=== PATIENT | male | born 1970 | race Caucasian/White ===

== ENCOUNTER 2023-10-07 17:57 | Emergency (ER) | payer OTHER, SELFPAY ==
--- NOTE | 2023-10-07 18:04 | XR_ITS ---
PROCEDURE INFORMATION: Exam: XR Right Knee Exam date and time: 10/07/2023 6:21 PM Age: 53 years old Clinical indication: Pain; Knee; Right TECHNIQUE: Imaging protocol: Radiologic exam of the right knee. Views: 3 views. COMPARISON: No relevant prior studies available. FINDINGS: Bones/joints: Normal. Soft tissues: Normal. IMPRESSION: No acute findings.
[2023-10-07 18:15] VITALS: BP 133/78; PULSE 82; RESP 19; TEMP 36.6; O2SAT 100; BMI 30.8
--- NOTE | 2023-10-07 18:43 | EXP.UTC ---
Discharge Plan Disposition Patient Disposition: Home, Self-Care Condition: Good Referrals Follow up/Referrals: Rajeev Adorno DO [Staff Physician] - See instructions (Call office for appointment) Matt Chance [Primary Care Provider] - See instructions Activity Restrictions/Add. Instructions Additional Instructions/Restrictions: *no weight bearing *RICE, Rest the extremity, Ice 15-20 minutes 3-4 times daily, Compress- wear the leticia wrap as discussed as much as possible to help reduce swelling and pain, Elevate the extremity when at rest *Knee immolizer is for support and help control swelling Be sure that is not to tight but not to loose either Use crutches to get around *Elevate when resting? *Ibuprofen 600-800mg every 6-8 hours as needed for pain an inflammation. If need something more can take Tylenol in between doses of Ibuprofen to help Immediately follow up with your family doctor for new or worsening of symptoms, or no noticeable improvement over the next 3-5 days Clinical Impressions Clinical Impression: Knee pain Qualifiers: Chronicity: unspecified Laterality: right Qualified Code(s): M25.561 - Pain in right knee Stand Alone Forms Stand Alone Forms: Work/School Release Instructions Patient Instructions: How to Use Crutches, DI for Knee Pain, How to Use a Knee Immobilizer Discharge ED Provider: Tanisha Banks [facility] [place] HPI General Stated complaint: RT leg, knee pain Mode of Arrival: Ambulatory Source of Information: Patient Limitations: No Limitations Time Seen by Provider: 10/07/23 18:43 Description of Symptoms (Recalled from Triage Doc. by RN): PATIENT STATES HE WAS LOADING HIS TRUCK YESTERDAY AND FELT A SHARP PAIN BEHIND HIS RIGHT KNEE. PATIENT STATES HE CANNOT PUT PRESSURE ON THAT LEG HEENT Symptoms (Recalled from RN notes): No Resp Symptoms (Recalled from RN notes): No Skin Symptoms (Recalled from RN notes): No MS Symptoms (Recalled from RN notes): Yes Functional Status (Recalled from RN notes): WNL History of Present Illness Provider Complaint: Patient states that he was loading his truck at work yesterday and went to step out of the truck onto the railing and and felt a sharp pain behind his right knee States that after that it hurt to put weight on it and today he noticed he had a swollen area just above the knee Related Data Allergies Allergy/AdvReac Type Severity Reaction Status Date / Time hydrocodone Allergy Verified 10/07/23 18:29 oxycodone Allergy Verified 10/07/23 18:29 Worker's Comp Is this a Worker's Comp case?: No [facility] Disclaimer: The information contained in this section may have been updated after the patient was seen, as this information can be updated by other users. Social History Smoking Status: Unknown if ever smoked alcohol intake: never current occupational status: employed Travel in the last 8 weeks: None ROS Obtained: Yes All systems reviewed & no additional complaints except as documented and Yes Systems reviewed as appropriate & no additional complaints except as documented Cardiovascular Cardiovascular: Reports system reviewed and no additional complaints, except as documented and Reports as per HPI Respiratory Respiratory: Reports system reviewed and no additional complaints, except as documented and Reports as per HPI Gastrointestinal Gastrointestingal: Reports system reviewed and no additional complaints, except as documented and as per HPI Musculoskeletal Musculoskeletal: Reports system reviewed and no additional complaints, except as documented and Reports as per HPI Comments: Pain in right knee after stepping wrong yesterday and feeling a sharp pain Physical Exam General General appearance: alert and in no apparent distress Respiratory Respiratory exam: Present normal lung sounds bilaterally; Absent respiratory distress or wheezes Cardiovascular Cardiovascular exam: Present regular rate, normal rhythm and normal heart sounds Expanded Lower Extremity Exam Right: Leg image: 1. swollen area noted 2. reports pain and pain behind knee area also no bruising noted no discoloration or warmth Knee exam: Present tenderness and swelling Lower leg exam: Present normal inspection Ankle exam: Present normal inspection Neurovascular/Tendon exam: Present normal capillary refill; Absent pulse deficit Gait: not tested/not observed Neurological Exam Neurological exam: Present alert and oriented X3 Medical Decision Making Vinnie Inquiry Pt receiving controlled substance: No Vinnie was queried for this patient: No Vital Signs: 10/07/23 18:15 Temperature 97.8 F Temperature Source Oral Pulse Rate [Right Brachial] 82 Respiratory Rate 19 Blood Pressure [Right Arm] 133/78 Blood Pressure Mean [Right Arm] 96 Blood Pressure Source [Right Arm] Automatic Cuff Blood Pressure Position [Right Arm] Sitting 02 Sat by Pulse Oximetry 100 Oxygen Delivery Method Room Air Orders (Tests/Meds): ORDERS Category Date Time Status XR knee RT 3V Stat Exams 10/07/23 18:04 Completed Radiology Data #1: Image(s): Knee Image Reviewed: Yes I have reviewed radiologist's interpretation FINDINGS: Bones/joints: Normal. Soft tissues: Normal. IMPRESSION: No acute findings. Procedures Orthopedic Splinting/Casting Injury #1: Side: right Lower Extremity Injury Location: knee Lower Extremity Immobilizer: knee immobilizer Other Orthopedic Equipment: crutches Post Cast/Splinting Neuro Status: intact and no change Post Cast/Splinting Vasc Status: intact and no change
[2023-10-07 18:53] VITALS: BP 133/78; PULSE 82; RESP 19; TEMP 36.6; O2SAT 100
== END 2023-10-07 19:04 | disposition home or self-care (01) ==
PROVIDERS: Emergency Provider Nurse Practitioner; PCP Family Medicine
DX: M25.561 Pain in right knee (principal); X50.0XXA Overexertion from strenuous movement or load, initial encounter
CPT/HCPCS: 73562; 99204; 99212; G0463

== ENCOUNTER 2024-01-11 15:25 | Outpatient (CLI) | payer BC, SELFPAY ==
[2024-01-11 16:07] LABS: Basophils # 0.1 K/mm3 (0-0.2); Eosinophils # 0.3 K/mm3 (0.0-0.4); Eosinophils % 3.2 % (0.1-12.0); Hematocrit 45.8 % (42.0-52.0); Hemoglobin 15.3 g/dL (14.1-18.0); Lymphocytes # 2.5 K/mm3 (0.7-4.5); Lymphocytes % 25.3 % (10-50); Mean Corpuscular HGB Conc 33.3 g/dL (31.8-35.4); Mean Corpuscular Hemoglobin 31.4 pg (27.0-31.2); Mean Corpuscular Volume 94.3 fl (80-94); Mean Platelet Volume 7.6 fl (7.4-10.4); Monocytes # 0.6 K/mm3 (0.1-1.0); Monocytes % 6.1 % (1.7-9.3); Neutrophils # 6.2 K/mm3 (1.8-7.8); Neutrophils % 64.3 % (37.0-80.0); Platelet Count 366 K/mm3 (142-424); Red Blood Count 4.85 M/mm3 (4.60-6.20); Red Cell Distribution Width 13.7 % (11.5-17.5); White Blood Count 9.7 K/mm3 (4.8-10.8)
[2024-01-11 17:58] LABS: Chloride 102 mmol/L (98-107); Sodium 136 mmol/L (136-145)
[2024-01-11 18:01] LABS: Alanine Aminotransferase 36 U/L (12-78); Albumin Level 4.6 g/dl (3.5-5.0); Albumin/Globulin Ratio 1.9 (1.1-1.8); Alkaline Phosphatase 133 U/L (38-126); Aspartate Amino Transferase 33 U/L (17-59); Bilirubin,Total 0.3 mg/dl (0.2-1.3); Blood Urea Nitrogen 16 mg/dl (9-20); Calcium 9.7 mg/dl (8.4-10.2); Carbon Dioxide 22 mmol/L (22.0-30.0); Estimated Glomerular Filt Rate 78 ml/min (>60); GFR (African American) 94 ML/MIN (>60); Globulin 2.4 g/dL (1.3-3.2); Glucose 98 mg/dl (74-100)
== END 2024-01-11 23:59 | disposition home or self-care (01) ==
LOC: LAB 15:27
PROVIDERS: PCP Family Medicine; Visit Provider Orthopaedic Surgery
DX: S83.231D Complex tear of medial meniscus, current injury, right knee, subsequent encounter (principal); W22.8XXD Striking against or struck by other objects, subsequent encounter
CPT/HCPCS: 36415; 80053; 85025

== ENCOUNTER 2024-01-24 07:27 | Day surgery (SDC) | payer OTHER, SELFPAY ==
[2024-01-18 09:54] VITALS: BMI 29.5
[2024-01-24] VITALS (10 sets, daily range): BP systolic 112–160; BP diastolic 69–101; PULSE 60–82; RESP 16–18; TEMP 36.3–36.7; O2SAT 94–100
[2024-01-24] MEDS: LACTATED RINGERS 1000ML 1,000 ML 100 ML IV (07:51)
--- NOTE | 2024-01-24 08:15 | P.PNANES_ITS ---
[facility] Disclaimer: The information contained in this section may have been updated after the patient was seen, as this information can be updated by other users. Medical History No significant past medical history Surgical History (Updated 01/24/24 @ 07:40 by Linda Dominique RN) History of shoulder surgery History of back surgery History of nasal surgery History of cholecystectomy Family History Other No significant family history Social History Smoking Status: Former smoker alcohol intake: never substance use type: denies use current occupational status: employed Travel in the last 8 weeks: None [facility] Anesthesia Checklist Patient Identification Patient Identification: Arm Band Structural Data Admitted From: Home Planned Operative Procedure/s: Right Knee Arthroscopy, Partial Medial Meniscectomy Consent for Planned Operative Procedure(s) Verified: Yes Verified Documents: Surgical Consent and History and Physical NPO Status Verified Time NPO: 00:00 Additional verifications Anesthesia Reactions: No Hx Blood Transfusions: No Airway Assessment Mallampati Score:: Class II C-Spine Mobility Assessed: Yes TMJ Mobility Assessed: Yes Dentition: Edentulous Neurological Assessment Level of Consciousness: Awake, Alert and Appropriate Anesthesia Plan Anesthesia Risk discussed: Yes Anesthesia Plan: Verified ASA Class: II Anesthesia Type: General
[2024-01-24] MEDS: CEFAZOLIN SODIUM 2 GM in 0.9 % SODIUM CHLORIDE 100 ML IV (09:45)
[2024-01-24] MEDS: BUPIVACAINE 0.25% 30ML VIAL 75 MG (10:13)
[2024-01-24] MEDS: RINGERS SOLUTION,LACTATED 6,000 ML 25 ML IR (10:13)
--- NOTE | 2024-01-24 11:10 | P.OP_ITS ---
Date of procedure: 01/24/24 Pre-op Diagnosis:: Right knee medial meniscus and right knee medial meniscus root tear Post-op Diagnosis:: Right knee complex tear posterior horn medial meniscus right knee meniscal root tear Right knee severe synovitis anterior compartment medial joint line Procedure performed:: Right knee arthroscopy with partial medial meniscectomy Right knee arthroscopy with extensive debridement synovectomy intercondylar notch anterior compartment medial joint line. Surgeon:: Rajeev Adorno DO SENIOR BACK END JAVA DEVELOPER:: Pascual Ware Anesthesia: GETA Estimated blood loss (mL): 0 Clinical Note:: 53-year-old male with complex tear of the posterior horn of the medial meniscus the combination of root tear and medial meniscus tear. Was consented for partial medial meniscectomy versus root repair or combination. Operative findings:: Unfortunately complex tear of the posterior horn of the meniscus involved a significant amount of the posterior horn and the root was unable to perform meniscectomy and root repair because of the nature of the tear. Operative note:: Patient was identified preoperatively. Right knee marked with yes and my initials. Transferred operative suite. Placed upon operating bed. General anesthesia administered airway secured. Right lower extremity was then prepped and draped within the knee eduardo. Once prepped and draped final operative timeout performed to identify proper patient procedure and extremity. Everyone involved in the case agreed. There were no counter indications to beginning. Did receive preoperative antibiotics. Marking pen was used to fidelia the bony landmarks of the knee and standard portal sites. Esmarch was used to exsanguinate the extremity and pneumatic tourniquet inflated to 300 mmHg. Skin knife is used to incise standard anterior lateral portal and blunt with trocar was placed in the patellofemoral joint exchange with a camera. Immediately within the patellofemoral joint there was significant synovitis present. I swept into the medial gutter and into the medial joint line where the anterior medial portal was made under direct visualization with the help of an 18-gauge spinal needle. This was then exchanged with a sucker shaver were synovectomy of the medial joint line was performed. I then placed a probe to probe the tear of the posterior horn the medial meniscus. There was tearing starting at the root but also into the posterior horn and body adjacent. Using a combination of straight biter sucker shaver partial medial meniscectomy was performed to obtain stable rim. Unfortunately the nature of the tear and its complex nature did not allow for meniscal root repair. Tensions brought intercondylar notch there was significant synovitis present synovectomy and debridement completed with a sucker shaver. ACL was then seen and intact. Swept into the lateral joint line again severe synovitis was present debridement was performed within the lateral joint line the lateral meniscus was intact lateral cartilage was intact. Also been to the medial lateral gutters no pathology was seen here back in the patellofemoral joint there was significant synovitis present where debridement was completed with a sucker shaver. Camera is then removed knee was drained local anesthesia filtrated the portal sites skin closed with nylon stitch. Sterile dressing placed from toe to thigh patient waken anesthesia taken recovery in stable condition Condition: stable Disposition: PACU Complications:: None apparent
--- NOTE | 2024-01-24 11:20 | P.PNANES_ITS ---
[facility] Anesthesia Record Part I Anesthesia Record I Intake, IV Amount: 900 Hydration: Adequate Estimated blood loss (mL): 20 Urine output (mL): 0 Blood Products used (#): none Blood Pressure: 143/97 SaO2: 97 Pulse Rate: 60 Airway Patency: Patent Respiratory Rate: 18 Temperature: 98.1 F Patient is:: Drowsy and Stable
--- NOTE | 2024-01-24 13:20 | EXP.ANES.II ---
[facility] Anesthesia Record Part II Anesthesia Record Part II Discharge Time: 11:45 Destination: Surgical Day Care (OP Surgery) PACU nurse assessment reviewed?: Yes Patient Condition:: Good Anesthesia Complications:: None Swallowing reflex intact?: Yes Airway Patency: Patent Cyanosis?: No Blood Pressure: 148/98 SaO2: 97 Respiratory Rate: 18 Pulse Rate: 62 Temperature: 97.4 F Mental Status: Alert & Oriented Pain level:: 0 Nausea and/or vomitting:: None Intake, IV Amount: 0 Hydration: Adequate
== END 2024-01-24 12:26 | disposition home or self-care (01) ==
PROVIDERS: PCP Family Medicine; Visit Provider Orthopaedic Surgery
PROC: (CPT 29870; principal; 2024-01-24 09:15)
DX: S83.231A Complex tear of medial meniscus, current injury, right knee, initial encounter (principal); M65.88 Other synovitis and tenosynovitis, other site
CPT/HCPCS: 29881; 96374; J0690; J2250; J2405; J3010; J7120

== ENCOUNTER 2024-02-08 11:18 | Outpatient (CLI) | payer OTHER, SELFPAY ==
--- NOTE | 2024-02-08 11:21 | CA_ITS ---
FINAL REPORT TECHNIQUE: Compression candelaria scale and Doppler evaluation CLINICAL HISTORY: recent right knee meniscus repair 01/24/24. Bruising and pain in right popliteal fossa post surgery. r/o DVT. FINDINGS: Femoral and popliteal veins show normal compressibility and flow. Visualized portion of the calf veins are patent by Doppler exam. IMPRESSION: No evidence of right lower extremity deep venous thrombosis Reviewed, Interpreted and Dictated by Nickolas Scott MD Transcribed by Sondra Cam Authenticated and [facility]
== END 2024-02-08 23:59 | disposition home or self-care (01) ==
LOC: RT 11:19
PROVIDERS: PCP Family Medicine; Visit Provider Orthopaedic Surgery
DX: R60.0 Localized edema (principal); S83.231D Complex tear of medial meniscus, current injury, right knee, subsequent encounter; Z98.890 Other specified postprocedural states
CPT/HCPCS: 93971